=== PATIENT | female | born 1990 | race Caucasian/White ===

== ENCOUNTER 2016-09-29 16:14 | Emergency (ER) | payer OTHER ==
[~2016-09-29] VITALS: Ht 157.5 cm; Wt 61.5 kg
[~2016-09-29 16:14] MED LIST: HYDR-3533 PO; MMW SS; PENI500T PO
[2016-09-29 16:22] VITALS: BP 115/79; PULSE 94; RESP 16; TEMP 98.4; O2SAT 100
[2016-09-29] MEDS ORDERED: CALNTAB PO (17:16)
--- NOTE | 2016-09-29 18:11 | PD ---
HPI . Pelvic cramping and brown vaginal discharge Chief Complaint: Related Problem Time Seen by Provider: 17:52 Travel History International Travel<30 days: No Contact w/Intl Traveler<30days: No Traveled to known affect area: No History of Present Illness HPI Patient presents with the acute onset of pelvic cramping and a brown vaginal discharge today. She states that she is 13 weeks . She has been seen by her SOLUTIONS ARCHITECT and has had an outpatient ultrasound done. She states that everything looked fine without ultrasound. He denies any difficulty with urination. She is not running any fevers. She has not recently been sexually active as [place] [employer] [place]. [id number]: Pelvic QUALITY: Cramping DURATION: Today TIMING: Continuous CONTEXT: 13 weeks ASSOCIATED SYMPTOMS: Brown vaginal discharge PFSH Past Medical History Anxiety: Yes Depression: Yes Diminished Hearing: No Respiratory: Yes Immunizations Current: Yes ?: LMP: 06/28/16 Past Surgical History Surgical History: No Previous Surgery Social History Alcohol Use: No Tobacco Use: No (QUIT) Substance Use: No Allergies-Medications (Allergen,Severity, Reaction): Coded Allergies: No Known Allergies (Unverified , 09/29/16) Reported Meds & Prescriptions Reported Meds & Active Scripts Active Reported Calna ( Vitamin) 1 Tab Tab 1 Tab PO DAILY Review of Systems Except as stated in HPI: all other systems reviewed are Neg General / Constitutional: No: Fever, Chills Genitourinary: Positive: Pelvic Pain, Discharge, No: Urgency, Frequency, Dysuria Physical Exam Narrative GENERAL: SKIN: Warm and dry. HEAD: Atraumatic. Normocephalic. EYES: Pupils equal and round. ENT: No nasal bleeding or discharge. Mucous membranes pink and moist. NECK: Trachea midline. CARDIOVASCULAR: Regular rate and rhythm. RESPIRATORY: No accessory muscle use. GASTROINTESTINAL: Abdomen soft, non-tender, nondistended. : Normal female. Scant, old appearing blood in the vaginal vault. Os is closed. There is no cervical motion tenderness. Uterus is appropriately enlarged for dates. MUSCULOSKELETAL: No obvious deformities. No edema. NEUROLOGICAL: Awake and alert. No obvious cranial nerve deficits. Motor grossly within normal limits. Normal speech. PSYCHIATRIC: Appropriate mood and affect; insight and judgment normal. Data Data Last Documented VS Vital Signs Date Time Temp Pulse Resp B/P Pulse Ox O2 Delivery O2 Flow Rate FiO2 3/10/17 16:22 98.4 94 16 115/79 100 Orders Beta Hcg (Quant/Titer) (09/29/16 17:07) Type And Screen (09/29/16 17:07) Urinalysis - C+S If Indicated (09/29/16 17:07) Ed Urine Pregnancytest Poc (09/29/16 17:07) Labs Laboratory Tests Test 09/29/16 17:30 Urine Color STRAW Urine Turbidity CLEAR Urine pH 6.5 Urine Specific [place] 1.005 Urine Protein NEG mg/dL Urine Glucose (UA) NEG mg/dL Urine Ketones NEG mg/dL Urine Occult Blood NEG Urine Nitrite NEG Urine Bilirubin NEG Urine Leukocyte Esterase NEG Urine RBC 0-3 /hpf Urine WBC 0-2 /hpf Urine Squamous Epithelial 0-5 /hpf Cells Urine Bacteria FEW /hpf Microscopic Urinalysis Comment CULT NOT INDICATED MDM Medical Decision Making Medical Screen Exam Complete: Yes Emergency Medical Condition: Yes Differential Diagnosis Differential diagnosis of bleeding in early includes but is not limited to ectopic , , physiologic, UTI Narrative Course Patient presents with pelvic cramping and scant dark bleeding at 13 weeks of . I did do a quick look ultrasound and she does have an intrauterine with a very active fetus with positive heart tones. I was not able to obtain any measurements. I did give her a couple pictures. Since the patient had an ultrasound done by her cable tender and since she has had an ultrasound done by me and since both ultrasounds show a viable IUP, the formal ultrasound has been canceled. Her UA is clear. Diagnosis Primary Impression: Bleeding in early Additional Impression: Pelvic pain affecting Patient Instructions: General Instructions, Pelvic Pain (ED) Disposition: 01 DISCHARGE HOME Condition: Stable Yumi Medina MD Sep 29, 2016 18:11
[2016-09-29 18:19] LABS: BLOOD, URINE NEG (NEG); GLUCOSE,URINE NEG (NEG); KETONE, URINE NEG (NEG); NITRITE,URINE NEG (NEG); PH, URINE 6.5 (5.0-8.5)
[2016-09-29 18:30] LABS: BACTERIA, URINE FEW /hpf; COMMENT (UR) CULT NOT INDICATED; CULTURE IF INDICATED CULT NOT INDICATED; RBC, URINE 0-3 /hpf (0-3); SQUAMOUS EPITHELIAL CELL URINE 0-5 /hpf (0-5); URINE COLOR STRAW (YELLW/STRAW); WBC, URINE 0-2 /hpf (0-5)
[2016-09-29 18:57] LABS: BETA HCG QUANT 39727 MIU/ML (0-5)
[2016-09-29 19:05] VITALS: BP 111/69; PULSE 73; RESP 18; O2SAT 100
--- NOTE | 2016-09-29 20:04 | PD ---
Data Data Last Documented VS Vital Signs Date Time Temp Pulse Resp B/P Pulse Ox O2 Delivery O2 Flow Rate FiO2 09/29/16 16:22 98.4 94 16 115/79 100 Orders Beta Hcg (Quant/Titer) (09/29/16 17:07) Type And Screen (09/29/16 17:07) Urinalysis - C+S If Indicated (09/29/16 17:07) Ed Urine Pregnancytest Poc (09/29/16 17:07) Gc And Chlamydia Pcr (09/29/16 19:06) Wet Prep Profile (09/29/16 19:06) Labs Laboratory Tests Test 09/29/16 09/29/16 09/29/16 17:30 18:00 18:17 Urine Color STRAW Urine Turbidity CLEAR Urine pH 6.5 Urine Specific [place] 1.005 Urine Protein NEG mg/dL Urine Glucose (UA) NEG mg/dL Urine Ketones NEG mg/dL Urine Occult Blood NEG Urine Nitrite NEG Urine Bilirubin NEG Urine Leukocyte Esterase NEG Urine RBC 0-3 /hpf Urine WBC 0-2 /hpf Urine Squamous Epithelial 0-5 /hpf Cells Urine Bacteria FEW /hpf Microscopic Urinalysis Comment CULT NOT INDICATED Human Chorionic Gonadotropin, [address] MIU/ML Quant Blood Type O POSITIVE Antibody Screen NEGATIVE Blood Bank Comment Clue Cells (Wet Prep) NONE SEEN Vaginal Trichomonas (Wet Prep) NONE SEEN Vaginal Yeast (Wet Prep) NONE SEEN MDM Supervised Visit with JIMY: No Narrative Course Patient signed out to me to follow-up on the Rh status. 25-year-old woman with vaginal bleeding and . Some cramping. She 13 weeks . Bedside ultrasound confirms IUP with movement. Labs unremarkable. Rh+. Outpatient follow-up. Diagnosis Primary Impression: Bleeding in early Additional Impression: Pelvic pain affecting Patient Instructions: General Instructions, Pelvic Pain (ED) Disposition: 01 DISCHARGE HOME Condition: Stable Kannan Doyle MD Sep 29, 2016 20:04
[2016-09-29 20:38] VITALS: BP 106/68; PULSE 74; RESP 18; O2SAT 100
[2016-09-30 02:49] LABS: CHLAMYDIA PCR NOT DETECTED (NOT DETECT); NEISSERIA PCR NOT DETECTED (NOT DETECT)
== END 2016-09-29 20:39 | disposition home or self-care (01) ==
LOC: PHED 16:14
DX: O46.91 Antepartum hemorrhage, unspecified, first trimester (principal); R10.2 Pelvic and perineal pain; Z3A.13 13 weeks gestation of pregnancy; Z87.891 Personal history of nicotine dependence
CPT/HCPCS: 81001; 84702; 84703; 86850; 86900; 86901; 87210; 87491; 87591; 99283